=== PATIENT | female | born 1990 | race Caucasian/White ===

== ENCOUNTER 2017-09-05 12:20 | Inpatient (IN) | payer OTHER ==
[~2017-09-05] VITALS: Ht 154.9 cm; Wt 90.7 kg
[2017-09-05] MEDS ORDERED: OXYTOCIN 20 UNITS in LACTATED RINGERS 1,000 ML IV SCH (12:40)
[2017-09-05] MEDS ORDERED: METHYLERGONOVINE 0.2 MG/ML AMP IM PRN ×2 (12:40→23:10)
[2017-09-05] MEDS ORDERED: LACTATED RINGERS 1,000 ML IV SCH (12:40)
[2017-09-05] MEDS ORDERED: MISOPROSTOL 25 MCG TAB VG PRN (12:40)
[2017-09-05] MEDS ORDERED: NALBUPHINE 10 MG/ML AMP IVP PRN (12:40)
[2017-09-05] MEDS ORDERED: OXYTOCIN 10 UNITS/ML VIAL IM PRN ×2 (12:40→23:10)
[2017-09-05] MEDS ORDERED: PROMETHAZINE 25 MG/ML VIAL IVP PRN (12:40)
[2017-09-05] MEDS ORDERED: AMPICILLIN 2,000 MG in NACL 0.9% 100 ML IV SCH (13:27)
[2017-09-05 13:57] LABS: BASOPHILS # (AUTO) 0.1 K/uL (0.00-0.22); BASOPHILS % (AUTO) 0.7 % (0.0-2.0); EOSINOPHILS # (AUTO) 0.2 K/uL (0-0.4); EOSINOPHILS % (AUTO) 1.5 % (0.0-4.0); HEMATOCRIT 35.6 % (36-48); HEMOGLOBIN 12.1 g/dL (12.0-16.0); LYMPHOCYTES % (AUTO) 14.7 % (20.5-51.1); MEAN CORPUSCULAR HEMOGLOBIN 30 pg (27-31); MEAN CORPUSCULAR HGB CONC 34 g/dL (33-37); MEAN CORPUSCULAR VOLUME 88 fL (80-94); MONOCYTES # (AUTO) 0.4 K/uL (0.8-1.0); MONOCYTES % (AUTO) 2.9 % (1.7-9.3); NEUTROPHILS # (AUTO) 10.9 K/uL (1.8-7.7); NEUTROPHILS % (AUTO) 80.2 % (42.2-75.2); PLATELET COUNT (AUTO) 220 K/uL (140-450); RED BLOOD CELL COUNT(AUTO) 4.07 MIL/uL (4.20-5.40); RED CELL DISTRIBUTION WIDTH 13.9 % (11.6-13.7); WHITE BLOOD COUNT (AUTO) 13.6 K/uL (4.8-10.8)
[2017-09-05] MEDS ORDERED: AMPICILLIN 2,000 MG VIAL ONE (14:05)
[2017-09-05] MEDS ORDERED: MISOPROSTOL 25 MCG TAB ONE ×2 (14:12→19:45)
[2017-09-05 14:55] LABS: APPEARANCE,URINE SL CLOUDY (CLEAR); BILIRUBIN,URINE NEGATIVE (NEGATIVE); BLOOD, URINE 3+ (NEGATIVE); COLOR,URINE YELLOW (YELLOW); LEUKOCYTE ESTERASE ,URINE 3+ (NEGATIVE); NITRITE, URINE NEGATIVE (NEGATIVE); UGLUCOSE NEGATIVE (NEGATIVE)
[2017-09-05] MEDS ORDERED: PNEUMOCOCCAL VACCINE 23 MCG/0.5 ML VIAL IMVAC SCH (15:10)
[2017-09-05 16:00] LABS: RBC,URINE 3-10 (FEW) /HPF (0-5)
[2017-09-05] MEDS ORDERED: AMPICILLIN 1,000 MG VIAL IVP SCH (16:00)
[2017-09-05] MEDS ORDERED: AMPICILLIN 1,000 MG VIAL ONE ×2 (17:46→21:30)
[2017-09-05] MEDS ORDERED: BUPIVACAINE 0.125%/NS PREMIX 250 ML ONE (22:28)
[2017-09-05] MEDS ORDERED: fentaNYL 0.05 MG/ML VIAL ONE (22:46)
[2017-09-05] MEDS ORDERED: OXYTOCIN 10 UNITS/ML VIAL ONE (22:47)
[2017-09-05] MEDS ORDERED: OXYTOCIN 20 UNITS/LR PREMIX 1,000 ML IV ONE (22:54)
[2017-09-05] MEDS ORDERED: oxyCODONE/APAP 5/325 MG 1 TAB TAB PO PRN (23:10)
[2017-09-05] MEDS ORDERED: BENZOCAINE/MENTHOL 20%-0.5% 60 GM CAN TP PRN (23:10)
[2017-09-05] MEDS ORDERED: IBUPROFEN 800 MG TAB PO PRN (23:10)
[2017-09-05] MEDS ORDERED: TEMAZEPAM 15 MG CAP PO PRN (23:10)
[2017-09-05] MEDS ORDERED: MEASLES, MUMPS, AND RUBELLA 1 VIAL SQVAC PRN (23:10)
[2017-09-05] MEDS ORDERED: HYDROcodone/APAP 5/325 MG 1 TAB TAB PO PRN (23:10)
[2017-09-05] MEDS ORDERED: METHYLERGONOVINE 0.2 MG/ML AMP ONE (23:11)
[2017-09-06] MEDS ORDERED: PROMETHAZINE 25 MG/ML VIAL ONE (01:31)
[2017-09-06 06:08] LABS: HEMOGLOBIN 11.9 g/dL (12.0-16.0)
[2017-09-06] MEDS ORDERED: INFLUENZA VIRUS VACCINE QUAD 0.5 ML SYR IMVAC SCH (11:00)
--- NOTE | 2017-09-06 11:46 | NUR ---
PATIENT HAS BEEN SCREENED AND CATEGORIZED LOW NUTRITION RISK. PATIENT WILL BE SEEN WITHIN 7 DAYS OF ADMISSION. 09/11/[address]
[2017-09-06] MEDS ORDERED: DOCUSATE SOD/SENNA 50/8.6 MG 1 TAB PO SCH (21:00)
[2017-09-07] MEDS ORDERED: IBUP-1842 PO (10:23)
== END 2017-09-07 18:25 | disposition home or self-care (01) | DRG 560 ==
LOC: MLD 12:20 → MFCC 09-06 01:45
PROVIDERS: ADMIT Obstetrics & Gynecology; ATTEND Obstetrics & Gynecology
PROC: 10E0XZZ Delivery of Products of Conception, External Approach (ICD-10-PCS; principal; 2017-09-05)
PROC: 3E0P7VZ Introduction of Hormone into Female Reproductive, Via Natural or Artificial Opening (ICD-10-PCS; 2017-09-05)
PROC: 00HU33Z Insertion of Infusion Device into Spinal Canal, Percutaneous Approach (ICD-10-PCS; 2017-09-05)
PROC: 3E0R3BZ Introduction of Anesthetic Agent into Spinal Canal, Percutaneous Approach (ICD-10-PCS; 2017-09-05)
PROC: 3E0234Z Introduction of Serum, Toxoid and Vaccine into Muscle, Percutaneous Approach (ICD-10-PCS; 2017-09-07)
PROC: 3E0234Z Introduction of Serum, Toxoid and Vaccine into Muscle, Percutaneous Approach (ICD-10-PCS; 2017-09-07)
DX: O99.824 Streptococcus B carrier state complicating childbirth (principal); Z23 Encounter for immunization; Z82.49 Family history of ischemic heart disease and other diseases of the circulatory system; Z37.0 Single live birth; Z3A.39 39 weeks gestation of pregnancy; Z83.3 Family history of diabetes mellitus
CPT/HCPCS: 36415; 51702; 59409; 81001; 85018; 85025; 86592; 86886; 86900; 86901; 87086; 90658; 90715; J0290; J2210; J2550; J2590; J3010; J3490; J7120